=== PATIENT | female | born 1990 | race African-American/Black ===

== ENCOUNTER → 2016-11-17 07:51 | Outpatient (CLI) | payer MEDICAID ==
[~2016-11-17 07:51] MED LIST: FERROUS SULFAT325 MG PO; PRENATAL VIT PO
== END | disposition home or self-care (01) ==
LOC: D.RT 11-02 13:00 → D.RAD 11-02 13:00 → D.RT 07:51
DX: R06.02 Shortness of breath (principal)

== ENCOUNTER → 2016-11-24 15:19 | Outpatient (CLI) | payer MEDICAID ==
[2016-11-24 18:55] LABS: BASOPHILS 0.2 % (0-2); EOSINOPHILS 1.2 % (0-7); HEMATOCRIT 37.1 % (36.0-48.0); HEMOGLOBIN 11.9 g/dL (12-16); IMMATURE GRANULOCYTES 0.3 % (0-5); LYMPHOCYTES 19.3 % (15-50); MCH 26.2 pg (26.0-34.0); MCHC 32.1 g/dL (31.0-37.0); MCV 81.7 fL (80.0-100.0); MEAN PLATELET VOLUME 10.7 fL (7.4-10.4); MONOCYTES 12.9 % (2-11); NEUTROPHILS 66.1 % (40-80); RBC 4.54 10x6/uL (4.00-5.40); RDW 17.9 % (11.5-14.5); WBC 5.9 10x3/uL (4.8-10.8)
[2016-11-24 18:59] LABS: PLATELET COUNT 444 10x3/uL (130-400)
== END | disposition home or self-care (01) ==
LOC: D.LABREF 15:19
PROVIDERS: Internal Medicine Pulmonary Disease
DX: R06.00 Dyspnea, unspecified (principal)

== ENCOUNTER → 2016-11-26 14:44 | Outpatient (CLI) | payer MEDICAID | END | disposition home or self-care (01) | LOC: D.CT 14:44 | DX: J18.9 Pneumonia, unspecified organism (principal) ==

== ENCOUNTER 2016-11-30 08:42 | Outpatient (CLI) | payer MEDICAID ==
[~2016-11-30] VITALS: Ht 162.6 cm; Wt 53.6 kg
[2016-11-30 09:28] VITALS: Ht 162.6 cm; Wt 53.6 kg
[2016-11-30 09:32] LABS: HCG URINE NEGATIVE (NEGATIVE)
[2016-11-30 10:09] LABS: APTT 31.7 SECONDS (22.8-39.4); INR 1.08 (0.85-1.17); PROTIME 13.9 SECONDS (11.6-15.0)
[2016-11-30 10:10] LABS: BASOPHILS 0.2 % (0-2); EOSINOPHILS 0.8 % (0-7); HEMATOCRIT 36.2 % (36.0-48.0); HEMOGLOBIN 11.6 g/dL (12-16); IMMATURE GRANULOCYTES 0.4 % (0-5); LYMPHOCYTES 15.7 % (15-50); MCH 25.9 pg (26.0-34.0); MCV 80.8 fL (80.0-100.0); MONOCYTES 14.7 % (2-11); NEUTROPHILS 68.2 % (40-80); RBC 4.48 10x6/uL (4.00-5.40); RDW 17.9 % (11.5-14.5)
[2016-11-30 10:13] LABS: PLATELET COUNT 350 10x3/uL (130-400)
--- NOTE | 2016-11-30 14:40 | NUR ---
1345 iv dc with cather tip intact
[2016-12-01 13:16] LABS: FUNGUS STAIN Final report (())
--- NOTE | 2016-12-01 14:03 | OP ---
PATIENT NAME: ARTURO TYLER MEDICAL RECORD: [id number] :89 LOCATION:[facility] ADMISSION DATE: SURGEON: FIDENICO YEPEZ MD DATE OF OPERATION: 11/30/2016 PROCEDURE: Fiberoptic bronchoscopy. INDICATION: Mr. Tyler is a 26-year-old -[place] female who is sick for the last few months. She is coughing. Cough is productive with a thick whitish colored sputum production. She has a couple of courses of antibiotic without any benefit. She has a chest radiograph, which showed mainly the shoulder shadows bilaterally. Fiberoptic bronchoscopy was carried down to inspect the airway as well as to obtain specimen for culture and sensitivity. MONITORING: EKG, pulse, and blood pressure were monitored throughout the procedure. MEDICATIONS: Versed 4 mg IV in divided doses, fentanyl 100 mcg IV in divided doses, morphine 5 mg IM, and atropine 0.6 mg IM. PROCEDURE IN DETAIL: After obtaining conscious sedation, the fiberoptic bronchoscope was easily passed through the mouth. The epiglottis was normal. The vocal cords were normal, moving equally on phonation. The main trachea was normal. There are white thick secretions in the main trachea. The lewis was sharp. The right main bronchus was normal. The subsegment to the right upper lobe, right middle lobe, right lower lobe within normal range. There was severe bronchitic changes. It bled easily by touching by the bronchoscope. The left main bronchus was subsegment to the left upper lobe, left lower lobe within normal range. There was severe bronchitic changes. It bled easily by touching by the bronchoscope. Washing was obtained from bilaterally and sent for routine culture and sensitivity, AFB and fungus as well as for cytology. Overall, the patient tolerated the procedure very well. TRANSINT:[id number] Voice Confirmation ID: [id number] DOCUMENT ID: [id number] FIDENCIO YEPEZ MD at 1403 CC: [id number] DICTATION DATE: 11/30/16 1128 INTERNAL CARVER: 11/30/16 1314 DEP CLI 11/30/16 [place] [address]
[2016-12-01 19:11] LABS: ACID FAST SMEAR Negative (()); AFB SPECIMEN PROCESSING Concentration (())
== END 2016-11-30 14:00 | disposition home or self-care (01) ==
LOC: D.OPS 08:42
PROVIDERS: Internal Medicine Pulmonary Disease
DX: J40 Bronchitis, not specified as acute or chronic (principal); Z01.812 Encounter for preprocedural laboratory examination

== ENCOUNTER → 2016-12-08 11:05 | Outpatient (CLI) | payer MEDICAID ==
[2016-11-30 09:28] VITALS: BMI 20.3
[2016-12-09 12:15] LABS: IMMUNOGLOBULIN E 728 IU/mL (0-100)
[2016-12-09 13:15] LABS: IMMUNOGLOBULIN A 566 mg/dL (87-352); IMMUNOGLOBULIN M 181 mg/dL (26-217)
== END | disposition home or self-care (01) ==
LOC: D.LABREF 11:05
PROVIDERS: Internal Medicine Pulmonary Disease
DX: J18.9 Pneumonia, unspecified organism (principal)

== ENCOUNTER 2016-12-31 05:59 | Day surgery (SDC) | payer MEDICAID ==
[~2016-12-31] VITALS: Ht 162.6 cm; Wt 53.8 kg
--- NOTE | ~2016-12-31 | HP ---
PATIENT: ARTURO TYLER MEDICAL RECORD: [id number] ACCOUNT: [id number] LOCATION:D.OPS : 89 ADMISSION DATE: 12/31/16 HISTORY AND PHYSICAL EXAMINATION NameARTURO TYLER (26yo, F) ID# [id number]. Date/Time12/30/2016 02:95IDTNN99/30/1990Service Dept.NP_[facility] ClinicProviderEDLEI PRUITT MDInsuranceMed Primary: [employer] [place] ([place]) Insurance # : [id number] Policy/Group # : [id number] PCP : VIKY SMITH Referring Provider Name : VIKY SMITH Employer Name : UNKNOWN Pres[facility]: [facility] - Member is eligible. Chief Complaint Mediastinal mass referral for bronchoscopy/mediastinoscopy Patient's Care Team Primary Care Provider (): [facility] [facility], [place] [address], , Referring Provider (): VIKY SMITH: [facility] [facility] [place] [address], , Patient's Pharmacies [facility] (ERX): [phone] [facility] [id number], , Vitals BP:90/64 sitting R arm 12/30/2016 01:51 pmBP Cuff Size:adult 12/30/2016 01:51 pmHR:68,reg 12/30/2016 01:52 pmHt:5 ft 4 in 12/30/2016 01:38 pmWt:118 lbs 12/30/2016 01:53 pmNotes:has cough and produces phlegm which is white to clear 12/30/2016 01:53 pmBMI:20.3 12/30/2016 01:53 pmAllergies Reviewed Allergies NKDAMedications Reviewed Medications Advil 200 mg tablet Take 1 tablet(s) every 6 hours by oral route.10/27/16 enteredCharity McAllisterProblems Reviewed Problems Mediastinal lymphadenopathy - Onset: 12/08/2016 Family History Discussed Family History Father- Heart disease - Hypertensive disorderMother- AsthmaSocial History Discussed Social History Clinical Migration and General Alcohol intake: Occasional Marital status: Single Smoking Status: Current every day smoker Occupation: caregiver Caffeine intake: Moderate Tobacco-years of use: 7 Surgical History Reviewed Surgical History Bronchoscopy HISTORY AND PHYSICAL [id number] ARTURO TYLER Knee arthroscopy/surgery - torn ACL Bronchoscopy - 11/30/2016 12/30/16 02:16PM no PA required for 12/31/16 sx per [facility] @ [facility]. *[employer] History (not configured) Past Medical History Discussed Past Medical History Documents for Discussion N/A Screening None recorded. HPI Dyspnea Reported by patient. Quality: dyspnea Severity: moderate Onset/Timing: daily mediastinal adenopathy and an extension lung disease ROS Patient reports weight loss (___ lbs) but reports no fever, no night sw eats, no significant weight gain, and no exercise intolerance. She reports irritation but reports no dry eyes and no vision change. She reports nose/sinus problems but reports no frequent nosebleeds. She reports snoring but reports no sore throat, no bleeding gums, no dry mouth, no mouth ulcers, no oral abnormalities, and no teeth problems. She reports chest pain on exertion, shortness of breath when lying down, and light-headed on standing but reports no arm pain on exertion, no shortness of breath when walking, no palpitations, and no known heart murmur. She reports cough, shortness of breath, and sleep apnea but reports no wheezing and no coughing up blood. She reports abdominal pain, vomiting, change in appetite, and nausea but reports no diarrhea, not vomiting blood, and no constipation. She reports muscle aches, muscle weakness, arthralgias/joint pain, back pain, and swelling in the extremities. She reports numbness, frequent or severe headaches, and migraines but reports no loss of consciousness, no weakness, no seizures, and no dizziness. She reports sleep disturbances but reports no depression, feeling safe in relationship, and no alcohol abuse. She reports swollen glands but reports no bruising. She reports runny nose, sinus pressure, and frequent sneezing but reports no itching and no hives. She reports no difficulty hearing and no ear pain. She reports no jugular vein distension and no swollen glands. She reports no incontinence, no diff iculty urinating, no hematuria, and no increased frequency. She reports no abnormal mole, no jaundice, and no rashes. She reports no fatigue. ROS as noted in the HPI Physical Exam Patient is a 26-year-old female. Constitutional: General Appearance: well nourished and well developed. Level of Distress: no acute distress. Ambulation: ambulating normally. Ears: Cerumen negative. Canal: no erythema or swelling. Tympanic Membrane: no bulging or fluid and perforated. Nasal: Nasal Mucosa: normal, no discharge, and pink and moist. Septum: not markedly deformed. HISTORY AND PHYSICAL [id number] ARTURO TYLER Oropharynx: Lips, Teeth, and Gums normal dentition and lips. Oral Mucosa no ulcer, mass, inflammation, swelling, or leukoplakia and moist. Palate: normal hard palate and soft pal ate. Tongue: no erythema, lesions, enlargement, or swelling. Tonsils: no enlargement or lesions. Posterior Pharynx no enlargement, erythema, exudate, ulcers, mass, cobblestoning, or white patches. Neck: Neck: supple, trachea midline, no masses, and Full R OM. Thyroid: no enlargement or nodules and non-tender. Jugular Veins: no jugular venous distention or farah a waves present and normal jugular venous pressure. Lungs: Respiratory effort: unlabored. Inspection: normal curve and chest wall expansion; no de formity, tenderness, or swelling; and tactile fremitus present and equal on both sides. Auscultation: no rales/crackles or rhonchi and breath sounds normal. Percussion: no dullness, flatness, or hyperresonance. Cardiovascular: Precordial Exam: non displac ed focal PMI. Heart Rate And Rhythm: normal heart rate and rhythm. Heart Sounds: no gallop, click, physiologically split S2, or pericardial friction rub and normal s1. Systolic Murmur: no systolic murmurs. Diastolic Murmur: no diastolic murmurs. Observati on/Palpation of peripheral vascular system: no cyanosis or varicosity changes and normal dorsalis pedis and posterior tibialis. Abdomen: Inspection and Palpation: no tenderness or masses and soft and non-distended. Liver: non-tender and no hepatomegaly. Sp emani: non-tender and no splenomegaly. Bowel Sounds: normal and no abdominal bruits. Lymphatic: no cervical lymph enlargement, axillary LAD, or supraclavicular LAD. Musculoskeletal:: Motor Strength and Tone: normal bulk, tone, and motor strength. Gait and Station: normal gait, station, and tandem gait. Joints, Bones, and Muscles: no contractures, malalignment, tenderness, scoliosis, kyphosis, or bony abnormalities and normal movement of all extremities. Extremities: Inspection/Palpation of digits and nails: no clubbing, cyanosis, petechiae, ischemia, edema, or nodular lesions. Skin: Inspection and palpation: no rash, lesions, jaundice, ulcer, erythema, or induration and normal turgor. Neurologic: Mental Status/Orientation: oriented to person, place, probl em/situation, and time. Mood/Affect: normal mood and affect. Sensation sensation normal. Cranial Nerves cranial nerves II - XII intact. Assessment / Plan mediastinal adenopathy and interstitial lung disease 1. Mediastinal lymphadenopathy R59.0: Localized enlarged lymph nodes Discussion Notes I have discussed the patient's disease process with her in detail as well as the alternative methods of treatment. We discussed mediastinoscopy and bronchoscopy including the expected benefits and risks which include bleeding, infection, stroke, , and they imponderables. We also discussed possibility of open procedure if bleeding is encountered. She understands all of the above and wishes to proceed with the planned procedure. HISTORY AND PHYSICAL [id number] ARTURO TYLER EDWARD MD CC: [id number] DICTATION DATE: 12/30/16 1400 CERTIFIED PHYSICIAN ASSISTANT: PHILIP 12/30/16 1552 [facility] [address] [id number]
--- NOTE | ~2016-12-31 | OP ---
PATIENT NAME: ARTURO TYLER MEDICAL RECORD: [id number] :89 LOCATION:D.OPS ADMISSION DATE: SURGEON: QASIM PRUITT MD DATE OF OPERATION: 12/31/2016 SURGEON: Qasim Pruitt MD ANESTHESIA: General, Dr. Hassan. OPERATION PERFORMED: 1. Mediastinoscopy with lymph node biopsies. 2. Flexible fiberoptic bronchoscopy with bronchoalveolar lavage, right upper lobe. PREOPERATIVE DIAGNOSIS: Mediastinal lymphadenopathy, interstitial lung disease. 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 INDICATION FOR OPERATION: Mediastinal adenopathy. FINDINGS OF THE OPERATION: 1. Mediastinal adenopathy frozen section demonstrated granulomatous disease. 2. Bronchoscopy demonstrated thick white mucus throughout the bronchi. A bronchioalveolar lavage was performed in the right upper lobe with return of clear fluid. ESTIMATED BLOOD LOSS: Less than 3 cc. DESCRIPTION OF PROCEDURE: After informed consent, adequate preoperative medication evaluation, the patient was brought to the operating room, placed on the table in the supine position. After induction of general anesthesia and application of appropriate monitoring devices, the neck and chest were prepped and draped in a sterile field, utilizing Betadine scrub, alcohol, and Betadine solution. A Betadine-impregnated drape was also used. A small 3 cm transverse incision was made above the sternal notch. Dissection carried down to the trachea. The tracheal fascia was opened and utilizing sharp and blunt dissection, the mediastinoscope was advanced to the lewis. At the lewis was a large lymph node. This was biopsied multiple times. One specimen was sent for culture and one specimen was sent for frozen section, which returned granulomatous lymphadenitis. There were permanent sections sent as well. Hemostasis was assured. The wound was irrigated and closed utilizing 3-0 Vicryl on the platysma, 5-0 subcuticular Monocryl on the skin. Sterile dressing was applied. The patient then underwent flexible fiberoptic bronchoscopy with the above findings, bronchioalveolar lavage was sent for aerobic culture as well as TB and fungus. The scope was removed. The patient awakened and transferred to the recovery room in satisfactory condition. TRANSINT:[id number] Voice Confirmation ID: [id number] DOCUMENT ID: [id number] OPERATIVE REPORT [id number] FAUSTOARTURO RAINEY QASIM PRUITT MD CC: [id number] DICTATION DATE: 12/31/16928 BELT LACER: 12/31/16 1119 [facility] [address] [facility], [facility]
[2016-12-31 06:51] VITALS: BP 116/72; Ht 162.6 cm; Wt 53.8 kg
[2016-12-31 07:07] LABS: HCG URINE NEGATIVE (NEGATIVE)
--- NOTE | 2016-12-31 07:17 | NUR ---
0645--NO NITRO PASTE APPLIED PER DR HANSEN ORDERS. HGJOJO RN
[2016-12-31 07:18] LABS: BASOPHILS 0.2 % (0-2); EOSINOPHILS 1.5 % (0-7); HEMATOCRIT 33.4 % (36.0-48.0); HEMOGLOBIN 10.7 g/dL (12-16); IMMATURE GRANULOCYTES 0.3 % (0-5); LYMPHOCYTES 14.7 % (15-50); MCH 26.1 pg (26.0-34.0); MCV 81.5 fL (80.0-100.0); MEAN PLATELET VOLUME 9.9 fL (7.4-10.4); MONOCYTES 15.2 % (2-11); NEUTROPHILS 68.1 % (40-80); PLATELET COUNT 341 10x3/uL (130-400); RDW 17.9 % (11.5-14.5)
[2016-12-31 07:30] LABS: APTT 32.9 SECONDS (22.8-39.4); INR 1.06 (0.85-1.17); PROTIME 13.7 SECONDS (11.6-15.0)
[2016-12-31 07:32] LABS: AMORPHOUS SEDIMENT <1+ /lpf (NONE SEEN); APPEARANCE HAZY (CLEAR); BACTERIA MODERATE /hpf (NONE SEEN); BILIRUBIN NEGATIVE (NEGATIVE); COLOR YELLOW (YELLOW); EPITHELIAL CELLS 0-5 /hpf (0-5); GLUCOSE NEGATIVE (NEGATIVE); KETONE NEGATIVE (NEGATIVE); LEUKOCYTE ESTERASE 1+ (NEGATIVE); MUCUS <1+ /lpf (NONE SEEN); NITRITE NEGATIVE (NEGATIVE); PROTEIN NEGATIVE (NEGATIVE); RED CELLS - URINE OCC /hpf (0-5); SPECIFIC GRAVITY 1.025 (1.005-1.020); UROBILINOGEN NORMAL (NORMAL); WHITE CELLS - URINE 0-5 /hpf (0-5)
[2016-12-31 07:33] LABS: ALBUMIN 3.1 g/dL (3.4-5.0); ALKALINE PHOSPHATASE 155 U/L (46-116); ALT (SGPT) 26 U/L (10-68); BILIRUBIN - TOTAL 0.17 mg/dL (0.2-1.3); CALC OSMOLALITY 280 mosm/kg (275-300); CARBON DIOXIDE 27.5 mmol/L (21.0-32.0); CHLORIDE - SERUM 104 mmol/L (98-107); CREATININE - SERUM 0.9 mg/dL (0.6-1.3); GLUCOSE 95 mg/dL (74-106); POTASSIUM - SERUM 4.1 mmol/L (3.5-5.1); PROTEIN - SERUM 8.1 g/dL (6.4-8.2); SODIUM 140 mmol/L (136-145); UREA NITROGEN 19 mg/dL (7-18); eGFR NON AFRICAN AMERICAN 80 mL/min (90-120)
[2016-12-31] MEDS ORDERED: ULTRAM50 MG PO (09:14)
--- NOTE | 2016-12-31 11:14 | NUR ---
1028-PT. WITH NAUSEA, MEDICATED WITH 4MG ZOFRAN IV. 1109-STATES NAUSEA RESOLVED, STATED SHE HAS PAIN IN NECK-MEDICATED WITH 50MG TRAMADOL, OFFERED SPRITE TO DRINK. 1115-REPORTED OFF TO COSME HERNANDEZ RN, TRANSFER OF CARE AT THIS TIME.
--- NOTE | 2016-12-31 16:26 | NUR ---
1215--PT RESTING WITH EYES CLOSED, WILL CONTINUE TO MONITOR. KARLA ALANIS 1330--PT VOIDS, IV DC'D. PT DRESSING AND AMBULATING IN ROOM. KARLA ALANIS 1345--PT COMPLAINS OF NAUSEA, NO EMESIS NOTED. KARLA ALANIS 1400--PHONED OBIE WITH DR PRUITT, ORDER RECIEVED. KARLA ALANIS 1415--CATHETER TO LEFT DORSAL HAND X1 ATTEMPT, IV REGLAN GIVEN. KARLA ALANIS 1430--NAUSEA RESOLVED. DISCHARGE INSTRUCTIONS GIVEN, PT VERBALIZES UNDERSTANDING. PT OFF UNIT VIA WC. KARLA ALANIS
[2017-01-01 19:08] LABS: ACID FAST SMEAR Negative (()); AFB SPECIMEN PROCESSING Concentration (()); AFB SPECIMEN PROCESSING Tissue Grinding (())
[2017-01-03 10:10] LABS: FUNGUS STAIN Final report (())
== END 2016-12-31 14:30 | disposition home or self-care (01) ==
LOC: D.OPS 05:59
PROVIDERS: Internal Medicine Cardiovascular Disease
DX: R59.0 Localized enlarged lymph nodes (principal); J84.9 Interstitial pulmonary disease, unspecified; F17.200 Nicotine dependence, unspecified, uncomplicated; K21.9 Gastro-esophageal reflux disease without esophagitis; Z01.812 Encounter for preprocedural laboratory examination

== ENCOUNTER → 2017-01-27 10:45 | Outpatient (CLI) | payer MEDICAID ==
[2016-12-31 06:51] VITALS: BMI 20.3
[~2017-01-27 10:45] MED LIST changes: +ULTRAM50 MG PO
== END | disposition home or self-care (01) ==
LOC: D.RAD 01-25 13:15
DX: Z98.890 Other specified postprocedural states (principal)

== ENCOUNTER → 2017-03-17 15:20 | Outpatient (CLI) | payer MEDICAID ==
[2016-12-31 06:51] VITALS: BMI 20.3
== END | disposition home or self-care (01) ==
LOC: D.CT 03-16 15:30
DX: J18.9 Pneumonia, unspecified organism (principal)

== ENCOUNTER → 2019-06-21 12:56 | Outpatient (CLI) | payer MEDICAID ==
[2016-12-31 06:51] VITALS: BMI 20.3
== END | disposition home or self-care (01) ==
LOC: D.RT 12:56
PROVIDERS: ATTEND Internal Medicine Pulmonary Disease
DX: D86.9 Sarcoidosis, unspecified (principal)